=== PATIENT | female | born 1980 | race Caucasian/White ===

== ENCOUNTER 2022-11-20 23:06 | Emergency (ER) | payer BC ==
[~2022-11-20] VITALS: Ht 167.7 cm; Wt 101.0 kg
[2022-11-20] MEDS ORDERED: LEVO75TA6 PO (23:18)
[2022-11-20] MEDS ORDERED: CETI10CA PO (23:18)
[2022-11-20] MEDS ORDERED: SERT-413 PO (23:18)
--- NOTE | 2022-11-20 23:26 | ED Upper Extremity ---
General Chief Complaint: Laceration Stated Complaint: RIGHT INDEX FINGER LAC Source: patient Exam Limitations: no limitations History of Present Illness Date Seen by Provider: November 20, 2022 Time Seen by Provider: 23:01 Initial Comments 42-year-old female with no pertinent past medical history that is [id number] coming in due to a laceration to her right index finger. She was doing the dishes, and there was a knife under the water that sliced her index finger. This occurred shortly prior to arrival. Last tetanus was within the past 2 years. Has mild pain which is better when she puts pressure on it. Otherwise denying any other acute complaints. She is unsure of her LMP she has an IUD in place. Allergies and Home Medications Allergies Coded Allergies: amoxicillin (Unverified Adverse Reaction, Unknown, 11/20/22) clarithromycin (Unverified Adverse Reaction, Unknown, 11/20/22) clavulanic acid (Unverified Adverse Reaction, Unknown, 11/20/22) Patient Home Medication List Home Medication List Reviewed: Yes Cetirizine HCl (Zyrtec) 10 Mg Capsule, 10 MG PO DAILY, (Reported) Entered as Reported by: ERIK MONTANO on 11/20/222317 Last Action: New Order Levothyroxine Sodium (Levothyroxine Sodium) 75 Mcg Tablet, 75 MCG PO DAILY, (Reported) Entered as Reported by: ERIK MONTANO on 11/20/222317 Last Action: New Order Sertraline HCl (Sertraline HCl) 50 Mg Tablet, 50 MG PO DAILY, (Reported) Entered as Reported by: ERIK MONTANO on 11/20/222317 Last Action: New Order Review of Systems Constitutional: No fever EENTM: no symptoms reported Respiratory: no symptoms reported Cardiovascular: no symptoms reported Musculoskeletal: see HPI Past Kuipfee-Ebbqkx-Tqzcke Hx Patient Social History Tobacco Use?: No Smoking Status: Never a Smoker Use of E-Cig and/or Vaping dev: No Use of E-Cig and/or Vaping Lázaro: Never a User Substance use?: No Alcohol Use?: No Pt feels they are or have been: No Immunizations Up To Date Influenza Vaccine Up-to-Date: No; Not Current First/Initial COVID19 Vaccinat: Unvaccinated Past Medical History Surgery/Hospitalization HX: Left knee surgery x 2, has IUD, Hypothyroidism, Seasonal allergies, Depression Physical Exam Vital Signs Vital Signs - First Documented 11/20/22 23:11 Temp 36.7 Pulse 96 Resp 18 B/P (MAP) 157/101 (119) Pulse Ox 96 O2 Delivery Room Air Capillary Refill : Height, Weight, BMI Height: '" Weight: lbs. oz. kg; BMI Method: General Appearance: WD/WN, no apparent distress HEENT: PERRL/EOMI Neck: normal inspection Cardiovascular: regular rate, rhythm Respiratory: no accessory muscle use Gastrointestinal: No distended Hand: Right (Right index finger with a superficial 2 cm laceration to the dis nikko tip that does not involve the nail) Neurologic/Tendon: normal sensation, normal motor functions, normal tendon functions Neurologic/Psychiatric: no motor/sensory deficits, alert, normal mood/affect Skin: normal color, warm/dry Procedures/Interventions Wound Location: Upper Extremities Other Wound Location right index finger Wound Length (cm): 2 Wound's Depth, Shape: superficial Wound Explored: clean Irrigated w/ Saline (ccs): 500 Anesthesia: 1% Lidocaine (digital block) Volume Anesthetic (ccs): 4 Suture: Chromic Suture Size: 5-0 Number of Sutures: 7 Progress simple interrupted sutures were used, patient tolerated the procedure well Progress/Results/Core Measures Results/Orders Vital Signs/I&O 11/20/22 11/20/22 23:11 23:45 Temp 36.7 36.7 Pulse 96 96 Resp 18 18 B/P (MAP) 157/101 (119) 157/101 Pulse Ox 96 96 O2 Delivery Room Air Room Air Progress Progress Note : Progress Note 42-year-old female with above history coming in due to a laceration to her right index finger. ABCs were intact and vitals were stable on presentation. The area was cleaned, a digital block was performed, and it was closed with absorbable suture. It is superficial and she does not need x-rays. Tetanus is up-to-date. I believe she is otherwise stable for discharge with outpatient follow-up. She was sent home with strict return precautions. Departure Impression Primary Impression: Finger laceration Qualified Codes: S61.210A - Laceration without foreign body of right index finger without damage to nail, initial encounter Disposition: HOME, SELF-CARE Condition: Stable Departure-Patient Inst. Decision time for Depature: 23:45 Referrals: [facility]AKIR (PCP/Family) Primary Care Physician Patient Instructions: Laceration Repair With Stitches ED Add. Discharge Instructions: The stitches are absorbable and you do not need to have them cut out. Keep the area clean and out of the water for at least 10 days. Taking a shower is okay, but do not submerge in any type of water such as a [place], bath, pool, etc. We recommend putting petroleum on its or bacitracin ointment daily and keeping it covered. Take ibuprofen and/or Tylenol as needed for pain. BRANDO TERRY MD November 20, 2022 23:26
[2022-11-20 23:45] VITALS: BP 157/101
== END 2022-11-20 23:45 | disposition home or self-care (01) ==
LOC: ER FS 23:08
DX: S61.210A Laceration without foreign body of right index finger without damage to nail, initial encounter (principal); Z28.310 Unvaccinated for COVID-19; W26.0XXA Contact with knife, initial encounter
CPT/HCPCS: 12001; 64450